=== PATIENT | male | born 1980 | race Caucasian/White ===

== ENCOUNTER 2016-03-21 11:30 | Emergency (ER) | payer BC ==
--- NOTE | 2016-03-21 14:17 | UC ---
Skin Complaint HPI - HPI Summary HPI Summary: 35 year old male with complaints of right groin pain and lump. States first noticed a tender area 2 days ago. Today seems more swollen and painful. Denies injury. Denies testicular or penile pain. Denies fever or chills. Denies hernia hx - History of Current Complaint Chief Complaint: UCGeneralIllness Time Seen by Provider: 03/21/16 13:48 Stated Complaint: LUMP ON GROIN Hx Obtained From: Patient Onset/Duration: Gradual Onset, Lasting Days - 3, Worse Since - today Onset Severity: Mild Current Severity: Moderate Location: Discrete - right groin Character: Swelling, Pain, Redness, Raised, Painful Aggravating: Touch Alleviating: Nothing Associated Signs & Symptoms: Positive: Tenderness. Negative: Nausea, Numbness, Thirst, Diaphoresis, Shivering, Difficulty Breathing, Fever, Chills, Wheezing, Throat Tightening, Rash, Abdominal Pain, Drainage, Bruising, Red Streaks - Allergy/Home Medications Allergies/Adverse Reactions: Allergies Allergy/AdvReac Type Severity Reaction Status Date / Time No Known Allergies Allergy Verified 03/21/16 13:39 Review of Systems Constitutional: Negative Skin: Other - red raised lump on skin at right groin Eyes: Negative ENT: Negative Respiratory: Negative Cardiovascular: Negative Gastrointestinal: Negative Genitourinary: Negative Motor: Negative Neurovascular: Negative Musculoskeletal: Negative Neurological: Negative Psychological: Negative All Other Systems Reviewed And Are Negative: Yes PMH/Surg Hx/FS Hx/Imm Hx Previously Healthy: Yes Endocrine History Of: Denies: Diabetes Cardiovascular History Of: Denies: Cardiac Disorders Respiratory History Of: Denies: Asthma - Surgical History Surgical History: None - Family History Known Family History: Positive: Diabetes - mother Negative: Hypertension - Social History Occupation: Employed Full-time Lives: With Family Alcohol Use: Rare Substance Use Type: None Smoking Status (MU): Current Some Day Smoker Physical Exam Triage Information Reviewed: Yes Appearance: Well-Appearing, Well-Nourished, Pain Distress - moving cautiously to avoid touching right groin Vital Signs: Initial Vital Signs Temp 98.3 F 03/21/16 13:39 Pulse 99 03/21/16 13:39 Resp 16 03/21/16 13:39 BP 131/96 03/21/16 13:39 Pulse Ox 97 03/21/16 13:39 Vital Signs Reviewed: Yes Eyes: Positive: Conjunctiva Clear. Negative: Discharge ENT: Positive: Pharynx normal. Negative: Nasal congestion Neck: Positive: Supple, Nontender Respiratory: Positive: Lungs clear, Normal breath sounds Cardiovascular: Positive: RRR, No Murmur Abdomen Description: Positive: Nontender, Soft. Negative: CVA Tenderness (R), CVA Tenderness (L), Distended, Guarding Musculoskeletal: Positive: Strength Intact - all 4 extremities, ROM Intact - all 4 extremities Neurological: Positive: Alert, Muscle Tone Normal Psychological: Positive: Age Appropriate Behavior - pleasant and cooperative Skin: Positive: Other - 2x3 cm very firm slightly raised abscess. no fluctuance appreciated. very tender to touch. at right groin skin fold. Negative: rashes Course/Dx - Course Course Of Treatment: education on abscess and need for warm packing. Follow up plan established - Differential Diagnoses - Skin Complaint Differential Diagnoses: Abscess - Diagnoses Provider Diagnoses: Abscess right groin Discharge - Discharge Plan Condition: Stable Disposition: HOME Prescriptions: Cephalexin CAP* [Keflex CAP*] 500 mg PO QID #28 cap Sulfamethox/Trimethoprim DS* [Bactrim DS 800/160 TAB*] 1 tab PO BID #14 tab Patient Education Materials: Abscess (ED) Additional Instructions: WARM PACK THE AREA EVERY 2 - 4 HOURS FOR 5 - 10 MINUTES. AVOID PINCHING AT THE AREA. FOLLOW UP SCHEDULED WITH YOUR PRIMARY CARE ON SATURDAY
== END 2016-03-21 14:32 | disposition home or self-care (01) ==
LOC: UCEAST 11:30
DX: L02.214 Cutaneous abscess of groin (principal); Z72.0 Tobacco use
CPT/HCPCS: 99202; G0463

== ENCOUNTER 2017-10-14 12:38 | Emergency (ER) | payer BC ==
[2017-10-14] MEDS ORDERED: ALPRAZolam TAB* 0.25 MG PO ONE (13:59)
--- NOTE | 2017-10-14 14:07 | ED ---
Psychiatric Complaint - HPI Summary HPI Summary: This is scribe Ignacioaaron Cash documenting for attending Dr. Mark Roman MD. A 37 y/o male presents to ED c/o stress reaching 4/10 in severity. Currently, the patient feels he is under a lot of stress and is tearful during examination. As per triage, "Pt is here headaches but when in triage he started crying and stated he felt overwhelmed. Pt states "I have a lot of personsal shit going on and i feel overwhelmed" Pt stated this has been going on for over a week now. Pt denies SI/HI but will need a MHE based off these triage findings". According to the patient he feels overwhelmed with stress. Pt denies any HI or SI. He stated that he has been having personal stress with relationships and such. Patient stated that he did not know where to go so he came to ED. He feels really down, hopeless, worthless. No treatment or prior psychiatric issues. SHx of no smoking, no recreational drugs, however, does have ETOH occasionally. 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 Patient hasnt been sleeping at night. - History Of Current Complaint Chief Complaint: EDMentalHealth Time Seen by Provider: 10/14/17 13:25 Hx Obtained From: Patient Onset/Duration: Sudden Onset, Still Present Timing: Constant Character: Depressed Aggravating Factor(s): Recent Stress Alleviating Factor(s): Nothing Associated Signs And Symptoms: Positive: Sleep Disturbance Related History: Negative For: Prior Psychiatric Issues Has Suicidal: Denies: Thoughts Has Homicidal: Denies: Thoughts - Allergies/Home Medications Allergies/Adverse Reactions: Allergies Allergy/AdvReac Type Severity Reaction Status Date / Time No Known Allergies Allergy Verified 10/14/17 14:50 PMH/Surg Hx/FS Hx/Imm Hx Endocrine/Hematology History: Denies: Hx Diabetes Respiratory History: Denies: Hx Asthma Infectious Disease History: No Infectious Disease History: Denies: Traveled Outside the [place] in Last 30 Days - Family History Known Family History: Positive: Diabetes - mother Negative: Hypertension - Social History Alcohol Use: Rare Substance Use Type: Reports: None Smoking Status (MU): Current Some Day Smoker Review of Systems Negative: Fever, Chills Negative: Erythema Negative: Sore Throat Negative: Chest Pain Negative: Shortness Of Breath, Cough Negative: Abdominal Pain, Vomiting, Nausea Negative: dysuria, hematuria Negative: Myalgia, Edema Negative: Rash Neurological: Other - NEGATIVE: Dizziness. Psychological: Other - NEGATIVE: HI, SI. All Other Systems Reviewed And Are Negative: Yes Physical Exam - Summary Physical Exam Summary: Constitutional: Well-developed, Well-nourished, Alert. (-) Distressed. Patient is tearful. Skin: Warm, Dry HENT: Normocephalic; Atraumatic Eyes: Conjunctiva normal Neck: Musculoskeletal ROM normal neck. (-) JVD, (-) Stridor, (-) Tracheal deviation Cardio: Rhythm regular, rate normal, Heart sounds normal; Intact distal pulses; The pedal pulses are 2+ and symmetric. Radial pulses are 2+ and symmetric. (-) Murmur Pulmonary/Chest wall: Effort normal. (-) Respiratory distress, (-) Wheezes, (-) Rales Abd: Soft, (-) epigastric tenderness, (-) Distension, (-) Guarding, (-) Rebound Musculoskeletal: (-) Edema Lymph: (-) Cervical adenopathy Neuro: Alert, Oriented x3 Psych: Patient is anxious appearing. Triage Information Reviewed: Yes Vital Signs On Initial Exam: Initial Vitals Temp Pulse Resp BP Pulse Ox 97.8 F 100 16 181/114 98 10/14/17 12:41 10/14/17 12:41 10/14/17 12:41 10/14/17 12:41 10/14/17 12:41 Vital Signs Reviewed: Yes Diagnostics - Vital Signs Vital Signs Temp Pulse Resp BP Pulse Ox 10/14/17 14:03 20 10/14/17 12:41 97.8 F 100 16 181/114 98 - Laboratory Lab Statement: Any lab studies that have been ordered have been reviewed, and results considered in the medical decision making process. Re-Evaluation - Re-Evaluation First Eval Re-Evaluation Time: 13:47 Comment: Patient agreed/consented to recieved anxiety medications. Course/Dx - Course Course Of Treatment: A 37 y/o male presents to ED c/o stress reaching 4/10 in severity. Currently, the patient feels he is under a lot of stress and is tearful during examination. No laboratory scans were done. In the ED course, the patient recieved Xanax. After MHE, patient care was discussed with Dr. Quinteros who recommends discharge. Patient will be discharged with a diagnosis of anxiety. Patient is to follow up with [employer] from his employer. Patient is agreeable with this plan. - Differential Dx/Clinical Impression Provider Diagnosis: Anxiety - Physician Notifications Discussed Care Of Patient With: Elan Quinteros Time Discussed With Above Provider: 17:20 Instructed by Provider To: Other - Recommends discharging patient. Discharge - Sign-Out/Discharge Documenting (check all that apply): Patient Departure - DISCHARGE - Discharge Plan Condition: Stable Disposition: HOME Prescriptions: ALPRAZolam TAB* [Xanax TAB*] 0.25 mg PO Q8H PRN #15 tab MDD 3 PRN Reason: Anxiety Patient Education Materials: Anxiety (ED) Referrals: Remi Zayas MD [Primary Care Provider] - Additional Instructions: RETURN TO ED FOR ANY NEW OR WORSENING SYMPTOMS.
[2017-10-14 18:14] VITALS: BP 133/84
== END 2017-10-14 18:13 | disposition home or self-care (01) ==
LOC: ED 12:38
DX: F41.9 Anxiety disorder, unspecified (principal); F17.200 Nicotine dependence, unspecified, uncomplicated
CPT/HCPCS: 99284; A9270-GY